=== PATIENT | female | born 1985 | race Caucasian/White ===

== ENCOUNTER 2017-05-31 18:20 | Inpatient (IN) | payer BC ==
[2017-05-31] MEDS ORDERED: Nalbuphine 20 MG/1 ML Amp IM PRN (19:59)
[2017-05-31] MEDS ORDERED: Carboprost Tromethamine 250 MCG/1 ML Amp IM PRN (19:59)
[2017-05-31] MEDS ORDERED: Methylergonovine 0.2 MG/1 ML Amp IM PRN (19:59)
[2017-05-31] MEDS ORDERED: Lactated Ringers 500 ML IV ONE (19:59)
[2017-05-31] MEDS ORDERED: Misoprostol 400 MCG (4 X 100 MCG TAB) RECTAL PRN (19:59)
[2017-05-31] MEDS ORDERED: Sodium Chloride 0.9% 10 ML Syringe FLUSH PRN (19:59)
[2017-05-31] MEDS ORDERED: Ondansetron 4 MG/2 ML SDV IV PRN (19:59)
[2017-05-31] MEDS ORDERED: Lidocaine 1% 30 ML SDV INJECT PRN (19:59)
[2017-05-31] MEDS ORDERED: Tranexamic Acid 1,000 MG in Sodium Chloride 0.9% 100 ML IV PRN (19:59)
[2017-05-31] MEDS ORDERED: Oxytocin/Normal Saline 30 UNIT/500 ML BAG IV SCH (20:00)
[2017-06-01] MEDS ORDERED: Oxytocin/Normal Saline 30 UNIT/500 ML BAG IV SCH (01:35)
--- NOTE | 2017-06-01 01:36 | HP ---
CHIEF COMPLAINT: Increased contractions. HISTORY OF PRESENT ILLNESS: A 31-year-old 7, para 3-0-3-3, currently at 39 and 2/7 weeks' gestation based on last menstrual period, presents to Labor and Delivery reporting irregular contractions, worse last night with increased pain to the point that she almost thought she had to come into the hospital and then they went away on their own. Tonight, started having contractions every 5 minutes lasting for over an hour and made her way into Labor and Delivery. Reports as they seemed to lessen in intensity to some degree, but remained in frequency. No leakage of fluid or vaginal bleeding. She has a history of a macrosomic and feels like these contractions will discontinue to keep up and she is hoping to be in labor. Otherwise, no symptoms of preeclampsia. No leakage of fluid. No vaginal bleeding. movement has been good and overall good. HISTORY: First ultrasound at 20 weeks and 4 days showed a 2-vessel umbilical cord and a posterior corpus placenta. Otherwise, normal anatomy. She was sent to Maternal Medicine for further evaluation of that and they found that she actually has a 3-vessel umbilical cord. However, found multiple muscular ventricular septal defect and referred her to Pediatric Cardiology who ultimately decided that she could still be delivered in [facility] as the 2 small defects are expected to close on their own and recommended EKG and echocardiogram for the baby after delivery and to be seen by Cardiology at 1 to 2 months of age and the baby could be delivered local. Otherwise, her blood type is O positive. She is rubella nonimmune. Syphilis serology nonreactive. Hepatitis B, HIV, TSH, hepatitis C, and wet prep are all negative. Glucose tolerance test was normal. Group B strep is negative. 1. First delivered 06/05/2009, at 40 weeks 0 days' gestation, female infant spontaneously, named Tayt. weight 3685 g, 12 hours of stage I, Apgars of 9 and 9. Had an intrathecal for pain management. This was a Cytotec induction and she has had pyelonephritis during her as well as impaired glucose tolerance. Delivering physician was Dr. Cruz. 2. Spontaneous on 06/04/2010, at 8 weeks' gestation. D and C was performed by Dr. Batista. 3. Delivered 06/23/2011, 8 weeks' gestation, spontaneous , resolved on its own. 4. Delivered on 09/28/2012, at 39 weeks 0 days' gestation, male , delivered vaginally. His name is Darian. He weighed 4111 g, Apgars of 8 and 9. Mother had been on progesterone for contractions due to her history of 2 prior miscarriages and she was delivered by Dr. Loo. 5. Delivered on 01/26/2015, 39 weeks 6 days' gestation, female , delivered vaginally, named Jessica, weight 3510 g. She had a hemorrhage requiring D and C, and she was transfused 2 units of blood. Stage I was only at 2 hours and 30 minutes, stage II was only 6 minutes. Apgars were 8 and 9, delivered by Dr. Loo. 6. #6, spontaneous , resolved on its own at approximately 8 weeks 6 days' gestation. This happened on June 04, 2016. PAST MEDICAL HISTORY: 1. Chicken pox prior blood transfusion. 2. Menarche at age 27 with regular cycles with 5 days of flow. 3. History of miscarriage requiring D and C in 2010. PAST SURGICAL HISTORY: 1. Laparotomy, appendectomy in 1998. 2. Dilatation and curettage, June 04, 2010. 3. Vaginal dilatation and curettage in Labor and Delivery on 01/27/2015 due to hemorrhage with clots and minimal tissue causing uterine atony. 4. [place] teeth extraction. FAMILY HISTORY: Father with diabetes and multiple myeloma. Sister with a history of twins. Maternal grandmother with Alzheimer disease. Paternal grandfather with colon cancer. Maternal grandfather with alcohol abuse. Maternal aunt with multiple births on mother's side of the family. Cousin with Down syndrome. Otherwise, negative for defects, clotting disorders, anesthesia problems, seizures, cystic fibrosis, and bleeding problems. SOCIAL HISTORY: The patient is and 's name is Jack. They have 3 children. 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 CURRENT MEDICATIONS: 1. Folic acid. 2. vitamin. 3. Tylenol as needed. exposure medications include: 1. Tamiflu. 2. Zithromax. 3. Nitrofurantoin. ALLERGIES: Bactrim. REVIEW OF SYSTEMS: No headaches, blurry vision, chest pain, shortness of breath, fever, chills, nausea, vomiting, diarrhea, or constipation. Has had some mild swelling. No skin rash. No other new symptoms reported. OBJECTIVE: Vital Signs: Blood pressure 121/78, pulse of 93, temperature is 98.6. HEENT: All within normal limits. Neck: Supple. No adenopathy. Heart: Regular without any murmur. Lungs: Clear to auscultation bilaterally. Abdomen: Gravid, nontender. Baseline heart rate 130 beats per minute. Moderate guzv-ii-jrky variability and accelerations noted. Miguel Barrera picking up contractions about every 5 minutes. Cervix 3 cm, 75%, and bag of water intact. Bag of water was ruptured with Amnio Hook and clear fluid returned. Labs pending. ASSESSMENT: 1. A 39 and 2/7 weeks' intrauterine based on last menstrual period. 2. 7, para 3-0-3-3. 3. Blood type O positive, rubella nonimmune, group B strep negative. 4. Hydronephrosis of . 5. History of hemorrhage. 6. History of spontaneous x3. 7. History of macrosomic infant. 8. History of blood transfusion after hemorrhage. 9. ventricular septal defects this . 10.History of E. coli pyelonephritis in the 2nd trimester. PLAN: At this time, the amniotic fluid sac was ruptured. Anticipate that this will help her continue to progress through her labor, which was already started. Anticipate vaginal delivery. The patient understands that things may change or arise such that she may need alternative delivery such as a section. Her questions have been answered. [facility] /[id number]
[2017-06-01] MEDS: Lactated Ringers 1,000 ML IV SCH ×3 (01:50→06:17)
[2017-06-01] MEDS ORDERED: EPINEPHrine 1 MG/ML SDV ONE (05:43)
[2017-06-01] MEDS ORDERED: fentaNYL 100 MCG/2 ML SDV ONE (05:43)
[2017-06-01] MEDS ORDERED: Bupivacaine 0.75%/D5W 2 ML Amp ONE ×2 (05:44→10:59)
--- NOTE | 2017-06-01 06:24 | PCM.PRNOTE ---
- Free Text/Narrative Note: Requested to provide analgesia to full term patient in severe pain. Upon entering the room, patient is standing and severe abdominal/pelvic/back pain and discomfort. Procedure was discussed with patient including adverse outcomes and expectations. Pt consented to analgesia, SAB/IT. Pt placed into a sitting position. Landmarks for SAB/IT were identified and marked. Back was prepped with betadine x3. A sterile, transparent, fenestrated drape was applied. Excess betadine was removed. Using 3 mL of a 1% lidocaine solution, a skin wheel was placed at the L3/L4 interspace. A 24 ga (4 inch) Pencan spinal needle was inserted until positive for CSF. Negative for heme or paresthesias. Injected fentanyl 20 mcg, sufentanil 10 mcg, and 12 mg of a 0.75% bupivacaine solution with an epi wash. Pt was placed left lateral tilt position for approximately 20 minutes. There were zero complications or adverse outcomes. Will continue to monitor.
[2017-06-01] MEDS ORDERED: Benzocaine/Menthol 20%-0.5% Spray 56 GM Canister TOP PRN (07:30)
[2017-06-01] MEDS ORDERED: Measles, Mumps & Rubella Vaccine 0.5 ML SDV SUBCUT ONE (07:30)
[2017-06-01] MEDS ORDERED: Famotidine 20 MG Tab PO PRN (07:30)
[2017-06-01] MEDS ORDERED: Docusate Sodium 100 MG Cap PO PRN (07:30)
[2017-06-01] MEDS ORDERED: Simethicone 80 MG Tab.Chew PO PRN (07:30)
[2017-06-01] MEDS ORDERED: diphenhydrAMINE 25 MG Tab PO PRN (07:31)
[2017-06-01] MEDS: Ibuprofen 800 MG Tab PO PRN ×2 (10:29→18:03)
[2017-06-01] MEDS ORDERED: fentaNYL 100 MCG/2 ML SDV ITHECAL ONE (10:59)
[2017-06-01] MEDS: Acetaminophen 325 MG Tab PO PRN ×2 (14:40→18:03)
[2017-06-01] MEDS: Prenatal Multivitamin with Calcium/Folic Acid/Iron Tab PO SCH (15:26)
[2017-06-02] MEDS: Ibuprofen 800 MG Tab PO PRN (01:40)
[2017-06-02] MEDS: Prenatal Multivitamin with Calcium/Folic Acid/Iron Tab PO SCH (08:16)
[2017-06-02] MEDS: Acetaminophen 325 MG Tab PO PRN (08:17)
--- NOTE | 2017-06-02 09:50 | DEL ---
DATE: 06/01/2017 PREPROCEDURE DIAGNOSES: 1. 39 and 3/7 weeks' intrauterine based on last menstrual period. 2. 7, para 3-0-3-3. 3. Blood type O positive, rubella nonimmune, and group B strep negative. 4. History of Escherichia coli urinary tract infection in the 2nd trimester. 5. History of hydronephrosis of . 6. History of hemorrhage requiring blood transfusion and dilatation and curettage after last delivery. 7. Spontaneous x3. 8. History of macrosomic . 9. Abnormal cardiac echo with multifocal ventricular septal defect. POSTPROCEDURE DIAGNOSES: 1. 39 and 3/7 weeks' intrauterine based on last menstrual period. 2. 7 now para 4-0-3-4. 3. Blood type O positive, rubella nonimmune, and group B strep negative. 4. History of Escherichia coli urinary tract infection in the 2nd trimester. 5. History of hydronephrosis of . 6. History of hemorrhage requiring blood transfusion and dilatation and curettage after last delivery. 7. Spontaneous x3. 8. History of macrosomic . 9. Abnormal cardiac echo with multifocal ventricular septal defect. HISTORY: This 31-year-old female with the above-listed diagnoses, presented to Labor and delivery last night with onset of regular contractions occurring every 5 minutes. She was 3 cm dilated, 75% effaced, had a history of macrosomic infant and delivery was made to proceed with artificial rupture of membranes with return of clear fluid after which time she did not really garbage pick up man in contractions as expected and we augmented with Pitocin after approximately 5-6 hours of labor, she was complete and pushed through 1 contraction with details as below. DETAILS OF PROCEDURE: With the patient in dorsal lithotomy position, she delivered a viable female in the OA position over intact perineum. Baby was dried and stimulated, bulb suctioned and placed up on mother's abdomen after a delay. Three-vessel umbilical cord was doubly clamped and then cut. Cord blood obtained and placenta delivered by gentle cord traction and concomitant uterine massage. Labia and vagina inspected and were intact. She was then catheterized for 150 mL of urine. The patient had tolerated procedure well. Sponge and instrument count was correct. COMPLICATIONS: None. ESTIMATED BLOOD LOSS: 400 mL. DISPOSITION: Mother and baby to stay in the room to initiate . [facility] /[id number]
[2017-06-02 11:01] VITALS: BP 110/76
== END 2017-06-02 11:20 | disposition home or self-care (01) | DRG 560 ==
LOC: DL.OBCHECK 18:20 → INTOOBSV 20:00 → DL.OB 20:00 → OBSVTOIN 06-01 07:12
PROVIDERS: ADMIT Family Medicine; ATTEND Family Medicine
PROC: 10E0XZZ Delivery of Products of Conception, External Approach (ICD-10-PCS; principal; 2017-06-01)
PROC: 10907ZC Drainage of Amniotic Fluid, Therapeutic from Products of Conception, Via Natural or Artificial Opening (ICD-10-PCS; 2017-06-01)
PROC: 00HU33Z Insertion of Infusion Device into Spinal Canal, Percutaneous Approach (ICD-10-PCS; 2017-06-01)
PROC: 3E0R3BZ Introduction of Anesthetic Agent into Spinal Canal, Percutaneous Approach (ICD-10-PCS; 2017-06-01)
DX: O80 Encounter for full-term uncomplicated delivery (principal); Z3A.39 39 weeks gestation of pregnancy; Z37.0 Single live birth; Z88.1 Allergy status to other antibiotic agents
CPT/HCPCS: 36415; 51701; 59409; 85027; 90707; A9270-GY; J2300; J2405; J2590; J3010; J7120

== ENCOUNTER 2019-01-08 14:56 | Observation (INO) | payer BC ==
[2019-01-08] MEDS ORDERED: ceFAZolin 2 GM in Premix Bag 1 BAG IV SCH (15:00)
[2019-01-08] MEDS ORDERED: Tranexamic Acid 1,000 MG in Sodium Chloride 0.9% 100 ML IV PRN (15:09)
[2019-01-08] MEDS ORDERED: Acetaminophen/oxyCODONE 325-5 MG Tab PO PRN (15:09)
[2019-01-08] MEDS ORDERED: Ondansetron 4 MG/2 ML SDV IV PRN (15:09)
[2019-01-08] MEDS ORDERED: hydrOXYzine HCl 25 MG Tab PO PRN (15:09)
[2019-01-08] MEDS ORDERED: Acetaminophen 325 MG Tab PO PRN (15:09)
[2019-01-08] MEDS ORDERED: Lactated Ringers 500 ML IV ONE (15:09)
[2019-01-08] MEDS ORDERED: Docusate Sodium 100 MG Cap PO PRN (15:09)
[2019-01-08] MEDS ORDERED: Lactated Ringers 1,000 ML IV SCH (15:15)
[2019-01-08] MEDS ORDERED: Morphine 2 MG/ML Syringe IVPUSH PRN (15:34)
[2019-01-08] MEDS ORDERED: Naloxone 2 MG/2 ML Syringe IVPUSH PRN (15:49)
[2019-01-08 16:14] LABS: ANION GAP 12.4; CHLORIDE,CL 102 mmol/L (101-111); SODIUM,NA 134 mmol/L (135-145)
[2019-01-08] MEDS ORDERED: Morphine 4 MG/ML Syringe IVPUSH ONE (17:40)
[2019-01-08 17:46] VITALS: BP 112/73; PULSE 91
[2019-01-09] MEDS ORDERED: Folic Acid 1 MG Tab PO SCH (09:00)
--- NOTE | 2019-01-09 10:04 | DISCH ---
ADMIT DIAGNOSES: 1. Fever. 2. Left side flank pain. 3. Suspected pyelonephritis. 4. Possible kidney stone. 5. Intrauterine at 23 and 3/7 weeks. 6. G8, P4-0-3-4. DISCHARGE DIAGNOSES: 1. Fever. 2. Left side flank pain. 3. Suspected pyelonephritis. 4. Possible kidney stone. Kidney stone on the left is 1.2 cm, calcified, and present within the left ureter with mild left hydronephrosis and mild right hydronephrosis noted. 5. Intrauterine at 23 and 3/7 weeks. 6. G8, P4-0-3-4. HISTORY OF PRESENT ILLNESS: Please see H and P done through [facility] and it will be scanned in the chart, seen in the clinic with admission. SUMMARY OF HOSPITAL COURSE: The patient was admitted on the above date with the above diagnosis, was given IV fluid boluses as well as 2 g Ancef and made n.p.o. Ultrasound was done, did reveal mild right and left hydronephrosis with a 1.2 cm calcification present within the left ureter. Ultrasound was also done with cervical length being 5 cm, heart rate recorded to be at 146 beats per minute, and [place] in the 140s range. Subsequently due to the kidney stone on the left in the ureter and the measurement size of 1.2 cm, did discuss case with Dr. Campbell, urologist, and Dr. Prado, CHEMISTRY DEPARTMENT CHAIR, and shared decision was made to transfer to higher level care for potential surgery today with ureteral stents. I did discuss this with the patient in detail as well as risks, benefits, alternatives, and complications of transfer. She understands, agrees, and wishes to proceed. Verbal and written consent were obtained. Questions were answered. She will be transferred via ambulance to [place]. She will be made n.p.o. Continue with morphine as needed prior to discharge and IV fluids while en route. CONDITION ON DISCHARGE COMPARED TO CONDITION ON ADMISSION: Guarded. DISCHARGE INSTRUCTIONS: Per discharge team and accepting physicians. Over 1/2 hour spent in discharge evaluation and management of the patient today. [facility] /[id number]
== END 2019-01-08 18:00 ==
LOC: DL.MS 15:03 → UNDOADMOB 15:11 → DL.MS 15:11
PROVIDERS: ADMIT Family Medicine; ATTEND Family Medicine
DX: O26.832 Pregnancy related renal disease, second trimester (principal); O99.89 Other specified diseases and conditions complicating pregnancy, childbirth and the puerperium; N13.2 Hydronephrosis with renal and ureteral calculous obstruction; Z3A.23 23 weeks gestation of pregnancy; Z79.899 Other long term (current) drug therapy; Z88.2 Allergy status to sulfonamides; Z88.1 Allergy status to other antibiotic agents
CPT/HCPCS: 36415; 76775; 76815; 80053; 85025; 96361; 96365; 96375; 96376; G0378; J0690; J2270; J2405; J7120

== ENCOUNTER 2019-04-21 04:53 | Inpatient (IN) | payer BC ==
[2019-04-21] MEDS: Lactated Ringers 1,000 ML IV ONE ×2 (05:15→06:47)
[2019-04-21] MEDS ORDERED: Tranexamic Acid 1,000 MG in Sodium Chloride 0.9% 100 ML IV PRN ×2 (06:34→08:49)
[2019-04-21] MEDS ORDERED: Citric Acid/Sodium Citrate Solution 30 ML Cup PO ONE (06:34)
[2019-04-21] MEDS ORDERED: Sodium Chloride 0.9% 10 ML Syringe FLUSH PRN (06:34)
[2019-04-21] MEDS ORDERED: GENTAMICIN IV ONE (06:34)
[2019-04-21] MEDS ORDERED: SODIUM CHLORIDE 0.9% IV ONE (06:34)
[2019-04-21] MEDS ORDERED: Lactated Ringers 1,000 ML IV SCH (06:45)
[2019-04-21] MEDS ORDERED: Oxytocin/Normal Saline 30 UNIT/500 ML BAG IV SCH (06:45)
[2019-04-21] MEDS: Clindamycin Phosphate 900 MG in Sodium Chloride 0.9% 100 ML IV ONE ×2 (07:14→13:27)
[2019-04-21] MEDS ORDERED: diphenhydrAMINE 50 MG/ML SDV IVPUSH PRN (08:49)
[2019-04-21] MEDS ORDERED: Carboprost Tromethamine 250 MCG/1 ML Amp IM PRN (08:49)
[2019-04-21] MEDS ORDERED: Acetaminophen 325 MG Tab PO PRN (08:49)
[2019-04-21] MEDS ORDERED: Acetaminophen/oxyCODONE 325-5 MG Tab PO PRN (08:49)
[2019-04-21] MEDS ORDERED: Methylergonovine 0.2 MG/1 ML Amp IM PRN (08:49)
[2019-04-21] MEDS ORDERED: Naloxone 2 MG/2 ML Syringe IVPUSH PRN (08:49)
[2019-04-21] MEDS ORDERED: Misoprostol 400 MCG (4 X 100 MCG TAB) RECTAL PRN (08:49)
[2019-04-21] MEDS ORDERED: ePHEDrine 50 MG/ML SDV IVPUSH PRN (08:49)
[2019-04-21] MEDS ORDERED: Docusate Sodium 100 MG Cap PO PRN (08:49)
[2019-04-21] MEDS ORDERED: Ondansetron 4 MG/2 ML SDV IVPUSH PRN (08:49)
[2019-04-21] MEDS: Lactated Ringers 1,000 ML IV SCH ×2 (09:20→18:24)
[2019-04-21] MEDS ORDERED: Promethazine 25 MG/ML SDV IM ONE ×2 (11:00→13:45)
[2019-04-21] MEDS ORDERED: hydrOXYzine HCl 25 MG Tab PO PRN (11:23)
--- NOTE | 2019-04-21 12:24 | HP ---
CHIEF COMPLAINT: Spontaneous rupture of membranes, clear fluid at 3:15 this morning. HISTORY OF PRESENT ILLNESS: A 33-year-old, 8, para 4-0-3-4, currently at 38-1/7 weeks' gestation, presents to the hospital reporting spontaneous rupture at home. She has had some contractions that are getting stronger, but they are still spaced out and irregular. Otherwise, reporting contractions all day yesterday and good movement. Reports she feels like the baby kind of had a rough day on and Tuesday, and she was just concerned about baby's activity and unusual movements, but baby was moving. The patient denies any headaches, blurry vision, chest pain, shortness of breath, nausea, vomiting, diarrhea, constipation. This has been quite complicated and hard on her, and she is happy to be here and expecting a vaginal delivery. OBSTETRICAL HISTORY: 1. 06/05/2009; 40 weeks' gestation, vaginal delivery, 3685-g female , induced with Cytotec. She had pyelonephritis during this as well as impaired fasting glucose tolerance. Baby was delivered by Dr. Cruz and baby's name is Taty. 2. 06/04/2010; 8 weeks, spontaneous , D and C performed in the office. 3. 06/23/2011; 8 weeks' gestation, spontaneous , resolved spontaneously. 4. 09/28/2012; 39 weeks, vaginal delivery, 4111-g male . The patient was on progesterone for contractions and had the history of 2 prior miscarriages. I was the delivering physician and baby's name is Darian. 5. 01/26/2015; at 39-6/7 weeks, vaginal delivery, 3510-g female infant, needed D and C , and transfused 2 units packed red blood cells due to excessive vaginal bleeding. Delivered by myself, Dr. Loo. Baby's name Jessica Lyon. 6. 06/03/2016; 8 weeks and 6 days' gestation, spontaneous , resolved spontaneously. 7. 06/01/2017; 39 weeks and 3 days' gestation, vaginal delivery, 3320-g female . No complications noted. I was the delivering physician and baby's name is Mariann. LABORATORY DATA: Blood type O positive. Antibody screen negative. Rubella immune. Hepatitis B nonreactive. HIV nonreactive. Gonorrhea and chlamydia negative. Thyroid normal, 0.83. Glucose tolerance test, 1-hour screen was 188. The patient declined initiating self-monitoring and took the 3- hour test, values were 96, 173, 128 and 78. Last hemoglobin in the office 12.2 on 02/26/2019, and platelets 174 on that same date. Group B strep is negative. MEDICATION EXPOSURES DURING THE : Included Tylenol, Zofran, vitamins, prednisone, Lorcet, Dilaudid, Decadron, fentanyl, morphine, phenylephrine, Zosyn, Phenergan, Diprivan, zemuron, succinylcholine, Augmentin, Celestone, Toradol, MiraLAX, Procardia, Benadryl, Colace, Reglan, Narcan, opium and belladonna suppository, Roxicodone, Pyridium, Detrol, contrast x2 for cystoscopy, and propofol. COMPLICATIONS: 1. Single umbilical artery. The patient had a history of single umbilical artery in prior that was found to be an erroneous diagnosis. She actually had a 3-vessel cord, when evaluated by Maternal Medicine. She refused any further evaluation of this 2-vessel cord believing that it was likely an erroneous diagnosis like her prior . 2. History of macrosomic in prior . 3. Refused influenza vaccine. 4. Impaired glucose tolerance of with lab values as above. The patient did some minimal monitoring and had normal glucose readings 1 and 2 hours postprandial. She had a history of prior with short cervix. Pyelonephritis in the second trimester. Nephrolithiasis and underwent 2 cystoscopies and stenting procedures. 5. History of hemorrhage. 6. High risk . 7. History of recurrent spontaneous with note of inability to use progesterone to help with gestation because of lack of appropriate insurance coverage. PAST MEDICAL HISTORY: Chicken pox, blood transfusion x1, miscarriage x3, and nephrolithiasis in . PAST SURGICAL HISTORY: Laparoscopic appendectomy in 1998; wisdom teeth extraction in 2004; dilatation and curettage on 06/04/2010; dilatation and curettage after delivery on 01/27/2015; ureteral stent placement bilaterally on 12/29/2018, accompanied with cystoscopy and then bilateral flexible digital ureteroscopy, basket extraction of stones, left retrograde pyelogram, and left ureteral stent replacement on 01/15/2019. FAMILY HISTORY: Mother alive and well. Father , diabetes and multiple myeloma. Sister, Leonor, with history of twins. Sister, Td, alive and well. Maternal grandmother, alive with Alzheimer's. Maternal grandfather, and had alcohol abuse. Paternal grandmother, alive and well. Paternal grandfather, colon cancer. Maternal aunt, history of multiple . Great uncle with Down's syndrome. SOCIAL HISTORY: The patient has never smoked. She had no illicit drug or alcohol exposures this . and her works essentially ranching, farming, and hauling cattle. 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 MEDICATIONS: vitamin 1 tablet p.o. daily and ranitidine 150 mg twice daily. No other recent medications. ALLERGIES: Bactrim or sulfamethoxazole causes hives and rash. The Rocephin, previously given IV, gave the patient experience of flushing, shaking chills, restlessness, forgetfulness, numbness, tingling, and a sensation of her heart racing. REVIEW OF SYSTEMS: Ten-system review completed and negative, other than those items already listed under the HPI. PHYSICAL EXAMINATION: General: A somewhat anxious 33-year-old female, highly concerned about the non- reassuring heart tracing as is appropriate given her situation. Vital Signs: Blood pressure 137/88 and pulse 82. She is afebrile. Respiratory rate of 18. HEENT: Grossly unremarkable. Heart: Regular without murmur. Lungs: Clear to auscultation bilaterally. Abdomen: Gravid, soft, and nontender. Contractions are painful, and the patient is reporting severe pelvic pressure. monitoring strip fluctuating between a category 2 and category 3 tracing. When the patient first arrived, there was a deceleration down into the 90s that lasted 2 minutes and then that was followed by tachycardia in the 180s for about a minute and a half, baseline and settled down to 180 beats per minute with moderate jtex-ca-jdic variability, but no accelerations. After the patient had been here for just over half an hour, the variability went to minimal. Then, after about 20 minutes, they returned to moderate [id number]-[id number] variability, but remained nonreactive and since that time has had fluctuation between the 2 types of tracings. Tocometer shows contractions, irregular, spaced about every 10 minutes initially and then just prior to going to the operating room, became much closer to about every 3 to 5 minutes. Extremities: No erythema, edema or tenderness noted. Psychiatric: The patient is anxious and upset. She does not want to consider section. She has had 4 successful vaginal deliveries and the thought of surgery and being able to take care of her family afterwards is overwhelming. She also is very concerned about the baby's heart tracing and being a prior labor and delivery nurse, has a grasp of understanding of interpretation of monitoring strips. LABORATORY DATA: Fasting glucose 105. Blood type O positive. Antibody screen negative. White blood cells 13.0, hemoglobin 11.8, hematocrit 34.6, and platelets 161. ASSESSMENT: 1. 38-1/7 weeks' intrauterine . 2. 8, para 4-0-3-4. 3. Non-reassuring tracing as indication for primary section. 4. High-risk . 5. Single umbilical artery with mother having refused further evaluation and consultation. 6. History of delivery of macrosomic infant. 7. Refusal of influenza vaccine. 8. Impaired glucose tolerance of with minimal monitoring performed. 9. This complicated by pyelonephritis. 10.This complicated by nephrolithiasis with 2 cystoscopies and stent placement/replacement procedures performed. 11.History of hemorrhage. 12.History of spontaneous miscarriage x3. 13.Mild anemia of . PLAN: At this time, the patient has been counseled by myself and the nurse, and even shown her monitoring tracings and discussed the unacceptable risk with proceeding with vaginal delivery, especially since her cervix is not significantly dilated since the last check in the office. We cannot start Pitocin because of monitoring tracing is not reassuring. We would anticipate only further compromise if we continue to try and force or allow vaginal delivery at this point. She has been advised of the risks and benefits of primary section and, although, the short-term potential complications and the short-term inconvenience that will cause to her life is certainly not worse the risk of a neuro-compromised baby or a baby who does not survive the delivery, as well as her potential complications for hemorrhage and other emergencies that may arise. Also discussed risk of waiting until the baby is further compromised and requiring emergency section under general anesthesia with its increased risk both to the mother and to the baby, and the advantages of proceeding with primary section under spinal anesthetic with controlled conditions. The patient is very much concerned about requiring a blood transfusion and does not want to receive blood unless it is deemed absolutely necessary, and I have reassured her that the only reason I would start an intrapartum blood transfusion is if she is having massive hemorrhage at that time. Also, discussed with her that , if she does have significant bleeding and if we need to discuss blood transfusion, we will thoroughly go over those details before initiating any sort of transfusion for her. After a thorough discussion, her questions were answered as were her 's. The details of the operative consent itself will be outlined in the operative report. A handwritten H and P has briefly been written to accompany the patient to the operating room, and this dictation being done after surgery completed in the interest of timeliness of getting the baby delivered. [facility] /[id number] [place]
[2019-04-21] MEDS: Prenatal Multivitamin with Calcium/Folic Acid/Iron Tab PO SCH (13:27)
[2019-04-21] MEDS: Simethicone 80 MG Tab.Chew PO SCH ×3 (13:27→22:03)
[2019-04-21] MEDS: Ketorolac 30 MG/ML SDV IVPUSH SCH ×2 (14:10→19:46)
[2019-04-21] MEDS: Acetaminophen/oxyCODONE 325-5 MG Tab PO PRN (20:05)
[2019-04-22] MEDS: Acetaminophen/oxyCODONE 325-5 MG Tab PO PRN ×6 (01:16→21:50)
[2019-04-22] MEDS: Ketorolac 30 MG/ML SDV IVPUSH SCH (01:54)
[2019-04-22] MEDS: Prenatal Multivitamin with Calcium/Folic Acid/Iron Tab PO SCH (08:40)
[2019-04-22] MEDS: Simethicone 80 MG Tab.Chew PO SCH ×4 (08:40→21:50)
[2019-04-22] MEDS: Ferrous Sulfate 325 MG Tab PO SCH (08:40)
[2019-04-22] MEDS: Ibuprofen 800 MG Tab PO PRN ×2 (10:00→17:55)
--- NOTE | 2019-04-22 12:28 | PN ---
DATE: 04/22/2019 SUBJECTIVE: Postoperative day #1. The patient is doing well. She is ambulating with some expected soreness and slowness, but is able to get around on her own. She just voided 350 mL before I came in to round on her. She is passing flatus, has not yet had a bowel movement yet. Reports that the blood flow has been light. has been going well. No chest pain or shortness of breath. Expected incisional pain and some edema in the lower extremities, but otherwise, no complaints or concerns about her postoperative state and generally happy with how things are going. OBJECTIVE: Vital Signs: Temperature is 98.2, pulse is 52, blood pressure 118/80, respiratory rate of 18, O2 saturations 98% on room air. Heart: Regular without murmur. Lungs: Clear to auscultation bilaterally. Abdomen: Soft, expected tenderness down near the incision site. Bowel sounds are normoactive in all 4 quadrants. Dressing had been removed and Steri-Strips are in place. Incision site is clean, dry, and intact. No oozing is seen. Extremities: Trace edema. No erythema or tenderness noted. LABORATORY DATA: Hemoglobin 9.4, down from previous 11.8. Platelets 146. ASSESSMENT: 1. Postop day 1 status post primary low transverse section for non- reassuring status felt to be due to the umbilical artery hemorrhage at the insertion site to the placenta which was a marginal cord insertion and a single-vessel umbilical artery. 2. Impaired glucose tolerance of with minimal monitoring. 3. High-risk for all the various reasons outlined in her admission history and physical. 4. Nephrolithiasis with history of stenting. 5. Anemia of and acute blood loss. 6. mother. PLAN: Continue normal postoperative cares. If the patient continues to do well through the evening, anticipate that she could be discharged home tomorrow. Although she is a primary , she is doing quite well and rather anxious to go home. [facility] /[id number]
[2019-04-23] MEDS: Acetaminophen/oxyCODONE 325-5 MG Tab PO PRN ×3 (01:59→09:37)
[2019-04-23] MEDS: Ibuprofen 800 MG Tab PO PRN ×2 (01:59→09:36)
[2019-04-23] MEDS: Ferrous Sulfate 325 MG Tab PO SCH (08:23)
[2019-04-23] MEDS: Prenatal Multivitamin with Calcium/Folic Acid/Iron Tab PO SCH (08:23)
[2019-04-23] MEDS: Simethicone 80 MG Tab.Chew PO SCH (08:23)
--- NOTE | 2019-04-23 08:29 | OR ---
DATE: 04/21/2019 PROCEDURE PERFORMED: Primary low transverse section with double-layer closure. INDICATION FOR PROCEDURE: Non-reassuring heart tracing with concern for immediate compromise. PREPROCEDURE DIAGNOSES: 1. A 38-1/7 weeks' intrauterine . 2. 8, para 4-0-3-4. 3. Non-reassuring heart tracing, category 2 and category 3 tracings intermittently, and no category 1. 4. High-risk . 5. Single umbilical artery. 6. History of macrosomia in prior . 7. Impaired glucose tolerance of with minimal monitoring of her sugars. 8. History of pyelonephritis this . 9. History of nephrolithiasis this with 2 cystoscopies and episodes of stent placement and replacement. 10.History of hemorrhage. 11.History of spontaneous x3. 12.Influenza vaccine refused. 13.Known marginal placental cord insertion. 14.Meconium stained fluid. POSTPROCEDURE DIAGNOSES: 1. A 38-1/7 weeks' intrauterine . 2. 8, para 4-0-3-4. 3. Non-reassuring heart tracing, category 2 and category 3 tracings intermittently, and no category 1. 4. High-risk . 5. Single umbilical artery. 6. History of macrosomia in prior . 7. Impaired glucose tolerance of with minimal monitoring of her sugars. 8. History of pyelonephritis this . 9. History of nephrolithiasis this with 2 cystoscopies and episodes of stent placement and replacement. 10.History of hemorrhage. 11.History of spontaneous x3. 12.Influenza vaccine refused. 13.Known marginal placental cord insertion. 14.Marginal cord insertion border-lining on velamentous cord insertion. 15.Umbilical artery hemorrhage at its insertion to the placenta. 16.Meconium stained fluid. BRIEF HISTORY: A 33-year-old female who presented to the hospital with spontaneous rupture of membranes and clear fluid leakage. Immediately when she was hooked up to the monitor, she had a 2-minute heart rate deceleration into the 90s followed by a minute and a half a tachycardia in the 180s and then the baseline tracing came down to 150 beats per minute at baseline with moderate [id number] variability and no accelerations. Later went on to a minimal variability and then would go back to moderate and back to minimal, never were there any significant accelerations. She was having increased strength of the contractions and eventually closer contractions, however, not sufficient to expect expedited vaginal delivery, and not making cervical change. The patient and her were consented for primary low transverse section because of distress. We had known single umbilical artery and marginal cord insertion to be concerned about placental or cord insufficiency causing the baby's intolerance. No vaginal bleeding to suspect placental abruption, but mother's pain was out of proportion for routine labor, especially in a woman who has had prior vaginal deliveries without any anesthesia. 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 Please see admission history and physical for full details. CONSENT: Discussed with the patient and her the indications, risks, benefits, and alternatives to primary low transverse section. Risks including potential infection and plan for preoperative antibiotics with gentamicin and clindamycin. Given the patient's history of severe reaction to Rocephin, Ancef was not deemed appropriate. Discussed risk of blood transfusion, and the patient is reluctant to receive a blood transfusion. She was reassured that one would only be given if absolutely deemed necessary or after more discussion if it was indicated, but not immediately life-saving. She understands risk of contraction of blood borne disease and potential for transfusion reactions, increased workload on the heart, and other complications that can be associated with transfusion. With surgery, discussed potential injury to large blood vessels; nerves; veins; internal organs and adjacent structures including, but not limited to, bowel, bladder, ureters, fallopian tubes, ovaries, intestines, superficial and deep tissues; potential injury to the baby; potential for complications to the patient and/or the baby that would require transfer to a tertiary center for further management; and remote risk of for either patient. Consent forms were signed and can be found in the paper chart. SURGEON: Ashanti Ludwig MD EXAMINATION PROCTOR: Luz South MD. ANESTHESIA: Spinal. DETAILS OF PROCEDURE: The patient brought to the operating room and spinal anesthesia obtained. She was laid in the dorsal supine position with leftward tilt and De La Fuente indwelling catheter was placed. She was prepped and draped in the normal sterile fashion and a Pfannenstiel skin incision made in the usual location at 7:24 a.m. and carried down through the underlying subcutaneous tissues to the fascia using cautery and blunt finger dissection. The fascia was then incised in the midline with cautery and extended bilaterally using finger dissection and additional cautery. Superior fascial edge was tented up and rectus muscles dissected off bluntly. Inferior fascial edge treated in similar fashion and muscles dissected off bluntly. Peritoneal cavity entered with blunt finger dissection and the uterus inspected. Chuy retractor was placed. Bladder flap then created with Metzenbaum's and DeBakey pickups. Appropriate location for uterine incision verified and uterine incision made at 7:29 a.m. and carried down until the amniotic fluid sac was found with scalpel and blunt finger dissection. The hysterotomy site created with Mendoza method. The head was brought up to the hysterotomy site and vernix was noted to be meconium stained and meconium fluid. The head was brought out through the hysterotomy site and 2 nuchal cords were reduced bluntly. The remainder of the infant delivered thereafter and time was 7:30. The baby's nose and mouth were bulb suctioned and 2-vessel umbilical cord was doubly clamped and cut and baby taken to the warmer for further evaluation. Cord blood sample was then obtained and placenta delivered by gentle cord traction and concomitant uterine massage. There was a dark, almost black hemorrhage noted at the cord insertion site. The uterine cavity was then cleared of all clots and debris with dry lap sponge and hysterotomy site closed with 0 Vicryl running lock suture. There remained an area of bleeding in the central location. Therefore, a second imbricating layer of 0 Vicryl was placed without complication and excellent hemostasis was achieved. Chuy retractor was then removed. Pericolic gutters cleared of all clots and debris and uterus removed from the abdominal cavity, inspected, and normal other than a couple of very small fibroids noted. The hysterotomy site reinspected and remained hemostatic. The peritoneal layer was closed with a running stitch of 1-0 Vicryl with good reapproximation. This layer was then irrigated. Fascia then closed with a running stitch of 0 looped PDS in the usual fashion with 1 locking suture in the midline. Subcutaneous tissue layer then irrigated, cleared of any clots and debris. Any small bleeders controlled with cautery and skin closed with a subcuticular stitch of 4 - 0 Vicryl. Mastisol and Steri-Strips were then placed. The patient had tolerated the procedure well and dressings were applied at 0811. URINE OUTPUT: 300 mL, clear. FLUIDS: 1500 mL of crystalloids. ESTIMATED BLOOD LOSS: 500 mL. COMPLICATIONS: None. FINDINGS: Viable female . scores of 8 and 9. She weighs 7 pounds 7 ounces. Inspection of the placenta and umbilical cord verifies single umbilical artery, which did have hemorrhage present at the cord insertion site of the placenta. There was a marginal cord insertion noted as well, borderline velamentous insertion. Otherwise, no obvious placental abnormalities seen. Maternal anatomy is appropriate and normal with 2 small fibroid noted. [facility] /[id number] MTDQuan
[2019-04-23 08:37] VITALS: BP 116/70; PULSE 65
[2019-04-23] MEDS ORDERED: Morphine PF 1 MG/ML Amp ONE (11:59)
[2019-04-23] MEDS ORDERED: Ondansetron 4 MG/2 ML SDV IV ONE (11:59)
[2019-04-23] MEDS ORDERED: Ketorolac 30 MG/ML SDV IVPUSH ONE (11:59)
[2019-04-23] MEDS ORDERED: Lactated Ringers 1,000 ML IV ONE (11:59)
[2019-04-23] MEDS ORDERED: Oxytocin/Normal Saline 30 UNIT/500 ML BAG IV ONE (11:59)
--- NOTE | 2019-04-25 04:18 | DISCH ---
ADMITTING DIAGNOSES: 1. 38-1/7 weeks' intrauterine by last menstrual period. 2. 8, para 4-0-3-4. 3. Spontaneous rupture of membranes. 4. High-risk . 5. Non-reassuring status. 6. Single umbilical artery. 7. History of macrosomia in prior . 8. Impaired fasting glucose of with insufficient monitoring. 9. History of pyelonephritis and nephrolithiasis complicating this . 10.History of hemorrhage due to retained tissue prior . 11.History of miscarriage x3. 12.Influenza vaccine refused. 13.Marginal cord insertion. 14.Anemia of . DISCHARGE DIAGNOSES: 1. 38-1/7 weeks' intrauterine by last menstrual period. 2. 8, para 4-0-3-4. 3. Spontaneous rupture of membranes. 4. High-risk . 5. Non-reassuring status. 6. Single umbilical artery. 7. History of macrosomia in prior . 8. Impaired fasting glucose of with insufficient monitoring. 9. History of pyelonephritis and nephrolithiasis complicating this . 10.History of hemorrhage due to retained tissue prior . 11.History of miscarriage x3. 12.Influenza vaccine refused. 13.Marginal cord insertion. 14.Anemia of . 15.Meconium-stained fluid. 16.Uterine artery hemorrhage at the placental insertion site. 17.Mild thrombocytopenia. 18.Anemia of acute blood loss. 19.Status post primary low transverse section with double-layer closure under spinal anesthetic. BRIEF HISTORY: The patient is a 33-year-old with the above-listed diagnoses who presented to the hospital after spontaneous rupture of membranes and was having irregular contractions. Immediately, baby had a deceleration down into the 90s lasting for a couple of minutes and then had rebound tachycardia for about a minute and a half. Thereafter, she was having category 2 and 3 tracings with minimal variability. No other decelerations. Baby was never reactive and she was not making any cervical change, even though her contractions picked up on their own and she was not a candidate for Pitocin given the intolerance. The patient eventually consented to primary low transverse section for distress. Surgery was performed without complications. See operative note for full details. Pertinent findings to explain the distress included a thin umbilical cord that was around the neck x2. A marginal cord insertion border lining on velamentous cord insertion plus hemorrhage of the umbilical artery where it inserted into the placenta. Baby did well scores were 8 and 9, weight 3365 g, 7 pounds 7 ounces. See all prior notes for full details. HOSPITAL COURSE: Has been good. The patient has been doing well postoperatively, ambulating, tolerating regular diet, passing flatus, not yet had a bowel movement, voiding without difficulties. No chest pain or shortness of breath. Expected amount of postoperative pain is being well controlled and patient requesting discharge home on postoperative day #2. is going well and her baby is growing nicely. DISCHARGE CONDITION: Good. PHYSICAL EXAMINATION: Vital Signs: Temperature is 98.9, pulse 65, blood pressure 116/70, respiratory rate of 16, O2 saturations 98% on room air. Heart: Regular without murmur. Lungs: Clear to auscultation bilaterally. Abdomen: Soft. Tender down by the incision site. Bruising noted superior to the incision. Incision has Steri-Strips in place. Is clean, dry, intact, and no erythema. Extremities: Trace edema. No erythema or tenderness noted. LABORATORY DATA: Admission hemoglobin 11.8, discharge 9.4. Admission platelets 166, discharge 146. Fasting glucose test on admission was 105. DISPOSITION: Home with family. MEDICATIONS: 1. Percocet 1 to 2 tablets every 4 to 6 hours as needed for pain. 2. Ibuprofen 800 mg every 8 hours as needed for pain. 3. vitamin. Continue 1 daily. 4. Iron 325 mg twice daily. PLAN: The patient will be seen in 10 to 14 days and we will see her baby for the 2-week check, sooner if any concerns or problems arise. INSTRUCTIONS: Routine post section delivery instructions were provided to the patient and she understands to come into the hospital or clinic if she has any problems with signs or symptoms of wound infection, dehiscence, or any other postoperative or complications and her questions were answered. Morning after discharge patient's oldest daughter was diagnosed with influenza and Angelia prescribed prophylaxis. [facility] /[id number] [place]
== END 2019-04-23 12:00 | disposition home or self-care (01) | DRG 540 ==
LOC: DL.OBCHECK 04:53 → DL.OB 06:34 → OBSVTOIN 07:30
PROVIDERS: ADMIT Family Medicine; ATTEND Family Medicine
PROC: 10D00Z1 Extraction of Products of Conception, Low, Open Approach (ICD-10-PCS; principal; 2019-04-21)
DX: O99.02 Anemia complicating childbirth (principal); D62 Acute posthemorrhagic anemia; O76 Abnormality in fetal heart rate and rhythm complicating labor and delivery; O99.814 Abnormal glucose complicating childbirth; O77.0 Labor and delivery complicated by meconium in amniotic fluid; Z3A.38 38 weeks gestation of pregnancy; Z37.0 Single live birth; Z28.82 Immunization not carried out because of caregiver refusal; Z87.442 Personal history of urinary calculi
CPT/HCPCS: 01961; 36415; 59025; 82947; 85027; 86850; 86900; 86901; 94010; A9270-GY; J1200; J1580; J1885; J2274; J2405; J2550; J2590; J3490; J7050; J7120